=== PATIENT | male | born 1950 | race American Indian/Alaskan Native ===

== ENCOUNTER 2017-05-04 09:58 | Day surgery (SDC) | payer MEDICARE, OTHER ==
[2017-05-04 10:49] VITALS: BMI 27.1
[2017-05-04 11:07] VITALS: TEMP 97.1; O2SAT 100
--- NOTE | 2017-05-04 11:32 | CP.SDSHP ---
Same Day Surgery [facility] - Previous Medical/Surgical History Cardiac: Hypertension Endocrine/Metabolic: Diabetes - Allergies Allergies: Allergies No Known Allergies Allergy (Verified 09/16/14 08:02) - Physical Exam Vital Signs: Vital Signs 05/04/17 10:53 Temperature 97.1 F L Pulse Rate 64 Respiratory 16 Rate Blood Pressure 136/73 O2 Sat by Pulse 100 Oximetry - Date & Time Date: 05/04/17 Time: 11:32 Short Stay Discharge - Short Stay Discharge Admitting Diagnosis/Reason for Visit: PERSONAL HISTORY OF COLONIC POLYPS Disposition: HOME/ ROUTINE Referrals: Rg Montenegro MD [Primary Care Provider] -
[2017-05-04] MEDS ORDERED: Propofol 10 mg/ml Inj (20 ML) ONE ×2 (11:39→11:43)
[2017-05-04] MEDS ORDERED: Simethicone 40 mg/0.6 ml Liquid (30 ml) ONE (11:49)
[2017-05-04 13:06] VITALS: BP 112/58; PULSE 70; RESP 13
== END 2017-05-04 12:50 | disposition home or self-care (01) ==
LOC: C.ENDO 09:58
PROVIDERS: ATTEND Colon & Rectal Surgery
DX: K64.8 Other hemorrhoids (principal); Z86.010 Personal history of colon polyps; Z80.0 Family history of malignant neoplasm of digestive organs
CPT/HCPCS: 45378; 82948; J2704; J7040

== ENCOUNTER 2019-02-05 07:30 | Outpatient (CLI) | payer MEDICARE, OTHER | END 2019-02-05 07:31 | disposition home or self-care (01) | LOC: C.CARD 07:30 ==

== ENCOUNTER 2019-02-28 07:48 | Day surgery (SDC) | payer MEDICARE, OTHER ==
[2019-02-27 14:44] VITALS: BMI 30.1
--- NOTE | 2019-02-28 08:49 | CP.SDSHP ---
Same Day Surgery [facility] & P - History Proposed Procedure: colonoscopy - Previous Medical/Surgical History Cardiac: Hypertension Endocrine/Metabolic: Diabetes - Allergies Allergies: Allergies No Known Allergies Allergy (Verified 09/16/14 08:02) - Physical Exam Vital Signs: Vital Signs 02/28/19 08:17 Temperature 97.8 F Pulse Rate 80 Respiratory 18 Rate Blood Pressure 146/66 O2 Sat by Pulse 98 Oximetry - Date & Time Date: 02/28/19 Time: 08:49 Short Stay Discharge - Short Stay Discharge Admitting Diagnosis/Reason for Visit: CHANGE IN BOWEL HABIT Disposition: HOME/ ROUTINE
[2019-02-28] MEDS ORDERED: Propofol 10 mg/ml Inj (20 ML) ONE (09:11)
[2019-02-28] MEDS ORDERED: Lactated Ringer's 500 ML IV ONE ×2 (09:12)
[2019-02-28 09:58] VITALS: TEMP 98.6
[2019-02-28 10:57] VITALS: BP 123/78; PULSE 61; RESP 15; O2SAT 98
== END 2019-02-28 10:52 | disposition home or self-care (01) ==
LOC: C.ENDO 07:48
PROVIDERS: ATTEND Colon & Rectal Surgery
DX: R19.4 Change in bowel habit (principal); K57.90 Diverticulosis of intestine, part unspecified, without perforation or abscess without bleeding; D12.4 Benign neoplasm of descending colon; K64.8 Other hemorrhoids
CPT/HCPCS: 45385; 82948; 88305; J2704; J7120